=== PATIENT | female | born 1975 | race American Indian/Alaskan Native ===

== ENCOUNTER 2017-03-28 18:08 | Emergency (ER) | payer BC ==
[2017-03-28 19:54] LABS: Anion Gap 20 mmol/L; BUN/Creatinine Ratio 14.28; Blood Urea Nitrogen 10 mg/dL (7-17); Calcium 9.6 mg/dL (8.4-10.2); Carbon Dioxide 21 mmol/L (22-30); Chloride 101.5 mmol/L (98-107); Glucose 94 mg/dL (65-100); Sodium 138 mmol/L (137-145)
[2017-03-28 19:55] LABS: Basophils % (Auto) 1.1 % (0.0-1.8); Eosinophils % (Auto) 2.4 % (0.0-4.3); Hematocrit 39.1 % (30.3-42.9); Hemoglobin 12.8 gm/dl (10.1-14.3); Mean Corpuscular HGB Conc 33 % (30-34); Mean Corpuscular Hemoglobin 26 pg (28-32); Mean Corpuscular Volume 80 fl (79-97); Platelet Count 352 K/mm3 (140-440); Red Blood Count 4.89 M/mm3 (3.65-5.03); Red Cell Distribution Width 17.2 % (13.2-15.2); White Blood Count 7.3 K/mm3 (4.5-11.0)
--- NOTE | 2017-03-29 07:08 | Emergency Department Report ---
ED Chest Pain HPI - General Chief Complaint: Chest Pain Stated Complaint: CHEST PAIN Time Seen by Provider: 03/29/17 06:35 Source: patient Mode of arrival: Ambulatory Limitations: No Limitations - History of Present Illness Initial Comments: This is a 41-year-old Afro[place] female presents to the emergency department with complaint of a 2 week history of midsternal chest pressure that worsens with bending over. The pain is a pressure sensation that is intermittent. There is no radiation. She denies any shortness of breath, nausea, vomiting, back pain or diaphoresis. She is not taken anything for symptoms prior to presentation. No recent travel or sick contacts at home. Her primary care physician is Dr. Angella Dahl but she has not seen Dr. Dahl regarding her symptoms. She denies any past medical history. However she does have some recent history of nonspecific inflammation for which she is seeing a diesel motor mechanic. Severity scale (0 -10): 0 - Related Data Allergies Allergy/AdvReac Type Severity Reaction Status Date / Time No Known Allergies Allergy Verified 03/29/17 08:51 Heart Score - HEART Score History: Slightly suspicious EKG: Normal Age: < 45 Risk factors: No known risk factors Troponin: < normal limit HEART Score: 0 - Critical Actions Critical Actions: 0-3 pts:0.9-1.7%risk of adverse cardiac event.Candidate for discharge ED Review of Systems ROS: Stated complaint: CHEST PAIN Other details as noted in HPI Comment: All other systems reviewed and negative Constitutional: denies: chills, fever Eyes: denies: eye pain, eye discharge, vision change ENT: denies: ear pain, throat pain Respiratory: denies: cough, shortness of breath, wheezing Cardiovascular: chest pain. denies: palpitations Gastrointestinal: denies: abdominal pain, nausea, diarrhea Genitourinary: denies: urgency, dysuria, discharge Musculoskeletal: denies: back pain, joint swelling, arthralgia Skin: denies: rash, lesions Neurological: denies: headache, weakness, paresthesias ED Past Medical Hx - Past Medical History Previous Medical History?: No - Surgical History Past Surgical History?: Yes Additional Surgical History: tonsillectomy, tipanoplasty, - Social History Smoking Status: Never Smoker Substance Use Type: None ED Physical Exam - General Limitations: No Limitations - Other Other exam information: GENERAL: The patient is well-developed well-nourished. HEENT: Normocephalic. Atraumatic. Extraocular motions are intact. Patient has moist mucous membranes. Pupils equal reactive to light bilaterally. NECK: Supple. Trachea is midline. CHEST/LUNGS: Clear to auscultation. There is no respiratory distress noted. There is some reproducible chest pain to palpation of the chest wall. HEART/CARDIOVASCULAR: Regular. There is no tachycardia. There is no gallop rub or murmur. ABDOMEN: Abdomen is soft, nontender. Patient has normal bowel sounds. There is no abdominal distention. SKIN: Skin is warm and dry. NEURO: The patient is awake, alert, and oriented. The patient is cooperative. The patient has no focal neurologic deficits. The patient has normal speech. MUSCULOSKELETAL: There is no tenderness or deformity. There is no limitation range of motion. There is no evidence of acute injury. ED Course Vital Signs 03/28/17 03/29/17 03/29/17 18:56 06:36 06:41 Temperature 99.2 F Pulse Rate 76 65 71 Respiratory 18 13 15 Rate Blood Pressure 132/91 Blood Pressure [Left] O2 Sat by Pulse 100 100 Oximetry 03/29/17 03/29/17 03/29/17 06:50 07:00 07:30 Temperature 98.2 F Pulse Rate 63 67 74 Respiratory 19 15 12 Rate Blood Pressure 134/85 137/98 Blood Pressure 136/68 [Left] O2 Sat by Pulse 100 99 Oximetry 03/29/17 03/29/17 03/29/17 08:00 08:57 09:00 Temperature Pulse Rate 70 Respiratory 13 Rate Blood Pressure 139/91 113/83 118/79 Blood Pressure [Left] O2 Sat by Pulse 99 100 100 Oximetry MARK ANTHONY score - Mark Anthony Score Age > 65: (0) No Aspirin use within the Past 7 Days: (0) No 3 or more CAD Risk Factors: (0) No 2 or more Angina events in past 24 hrs: (1) Yes (if pressure is considered angina) Known CAD with more than 50% Stenosis: (0) No Elevated Cardiac Markers: (0) No ST Deviation Greater than 0.5mm: (0) No MARK ANTHONY Score: 1 ED Medical Decision Making - Lab Data Result diagrams: 03/28/17 19:06 03/28/17 19:06 - EKG Data -: EKG Interpreted by Me EKG shows normal: sinus rhythm, axis, intervals, QRS complexes, ST-T waves Rate: normal - EKG Data When compared to previous EKG there are: previous EKG unavailable Interpretation: normal EKG - Radiology Data Radiology results: report reviewed, image reviewed interpreted by me: Chest x-ray did not show any acute process. Heart is normal shape and size. No effusions. No pneumothorax. No signs of pneumonia seen. CT angiography of the chest does not show any pulmonary embolism or dissection and is a normal examination. - Medical Decision Making 41-year-old female presents with a 2 week history of intermittent midsternal chest pressure. Vital signs stable throughout her ED course. EKG is normal without ST elevation NJ, ischemia or dysrhythmia. Labs are mostly unremarkable including no signs of infection, electrolyte abnormalities and she has negative troponins 3. Due to the fact that the patient complained of some recent inflammatory swelling, that included her lower extremities, and despite the fact that her legs are not currently swollen now, a d-dimer was obtained to rule out DVT and/or PE. However the d-dimer came back slightly elevated and equivocal and therefore the patient had a CT angiography of the chest that did not show any pulmonary embolism or dissection or acute process. Overall the patient does not appear to be in any acute distress. She is very low risk for coronary artery disease. She is low on the heart score criteria and her MARK ANTHONY score is 1 if her chest pain is considered angina and 0 if not. The pain is reproducible and appears to at least have some association with some costochondritis or chest wall inflammation. There are no murmurs, rubs or gallops. The patient appears safe for discharge home at this time. She will follow-up with her primary care physician and has also been given a referral for cardiology. She will return to the ER with any worsening of her symptoms or any acute distress. - Differential Diagnosis costochondritis, pneumonia, [place], PE, CHF Critical Care Time: No Critical care attestation.: If time is entered above; I have spent that time in minutes in the direct care of this critically ill patient, excluding procedure time. ED Disposition Clinical Impression: Chest pain Qualifiers: Chest pain type: unspecified Qualified Code(s): R07.9 - Chest pain, unspecified Disposition: TO HOME OR SELFCARE Is pt being admited?: No Condition: Stable Instructions: Chest Pain (ED), Costochondritis (ED) Additional Instructions: Please follow-up with Dr. Hudson in the next few days. I've given you a referral for a local marine cargo surveyor, Dr. Davila, to follow up regarding your chest pains and for a possible outpatient stress test. Return to the emergency department with any worsening of your symptoms, or any acute distress. Referrals: ANGELLA DAHL MD [Staff Physician] - 3-5 Days HIRAL DAVILA MD [Staff Physician] - 3-5 Days Time of Disposition: 09:27
[2017-03-29] MEDS ORDERED: BABY ASPIRIN PO ONE (07:14)
--- NOTE | 2017-03-29 07:52 | XRay Report ---
AP CHEST: HISTORY: chest pain AP view of the chest demonstrates a normal mediastinal and cardiac contour with clear lungs and normal bony and soft tissue structures. IMPRESSION: Unremarkable AP chest.
[2017-03-29] MEDS ORDERED: NACL ONE (08:06)
[2017-03-29 09:11] VITALS: BP 118/79
--- NOTE | 2017-03-29 09:18 | Cat Scan Report ---
CTA CHEST: History: Chest pain. Technique: Helical CT following IV contrast. Pulmonary embolus protocol. Sagittal and coronal reformatted images. Rotational MIP images. Findings: Contrast bolus is satisfactory. No pulmonary embolus is identified. The thyroid gland, tracheobronchial tree, esophagus, heart, pericardium, mediastinal vessels, lung terrazas and bony thorax are unremarkable. Impression: No evidence for pulmonary embolus. Unremarkable CT chest with contrast.
== END 2017-03-29 09:36 | disposition home or self-care (01) ==
LOC: ED 18:08
DX: R07.9 Chest pain, unspecified (principal)
CPT/HCPCS: 36415; 71010; 71275; 80048; 84484; 85025; 85379; 93005; 93010; 99285; Q9967